=== PATIENT | male | born 1990 | race Hispanic/Latino ===

== ENCOUNTER 2016-11-10 22:45 | Emergency (ER) | payer BC, OTHER ==
[2016-11-10 22:52] VITALS: BMI 22.8
[2016-11-10 23:01] VITALS: BP 114/78; PULSE 71; RESP 18; TEMP 97.6; O2SAT 100
--- NOTE | 2016-11-10 23:03 | ED PDOC ---
Arrival/HPI - General Chief Complaint: Finger,Hand,&Wrist Time Seen by Provider: 11/10/16 22:59 Historian: Patient - History of Present Illness Narrative History of Present Illness (Text): 11/10/16 23:00 26 y/o male, no significant pmh, lt. handed and using the lt. hand 1st digit thumb to grab and throw the bowling ball c/o lt. hand 1st digit thumb pain x 6 months with no fall or trauma. Aching pain, aggravated by the thumb movement, no fever or chills, no chest pain or shortness of breath, no night sweat, no other medical or psychological complaints. Past Medical History - Provider Review Nursing Documentation Reviewed: Yes - Past History Past History: No Previous - Infectious Disease Hx of Infectious Diseases: None - Tetanus Immunization Tetanus Immunization: Up to Date - Past Medical History Past Medical History: No Previous - Cardiac Hx Cardiac Disorders: No - Pulmonary Hx Respiratory Disorders: No - Neurological Hx Neurological Disorder: No - HEENT Hx Sinusitis: Yes Other/Comment: sinus sx - Renal Hx Renal Disorder: No - Endocrine/Metabolic Hx Endocrine Disorders: No - Hematological/Oncological Hx Blood Disorders: No - Integumentary Hx Dermatological Disorder: No - Musculoskeletal/Rheumatological Hx Musculoskeletal Disorders: No Hx Falls: No - Gastrointestinal Hx Gastroesophageal Reflux: Yes Hx Gastrointestinal Ulcer: Yes - Genitourinary/Gynecological Hx Genitourinary Disorders: No - Psychiatric Hx Depression: Yes Hx Substance Use: No - Past Surgical History Past Surgical History: No Previous - Surgical History Hx Orthopedic Surgery: Yes (broken nose 2 yrs) Other/Comment: sinus surgery - Anesthesia Hx Anesthesia: Yes Hx Anesthesia Reactions: No Hx Malignant Hyperthermia: No - Suicidal Assessment Feels Threatened In Home Enviroment: No Family/Social History - Physician Review Nursing Documentation Reviewed: Yes Family/Social History: Unknown Family HX Smoking Status: Never Smoked Hx Alcohol Use: No Hx Substance Use: No Hx Substance Use Treatment: No Allergies/Home Meds Allergies/Adverse Reactions: Allergies No Known Allergies Allergy (Verified 07/26/15 01:25) Review of Systems - Review of Systems Constitutional: absent: Fatigue, Fevers Eyes: absent: Vision Changes ENT: absent: Hearing Changes Respiratory: absent: SOB, Cough Cardiovascular: absent: Chest Pain Gastrointestinal: absent: Abdominal Pain Musculoskeletal: Arthralgias, Myalgias. absent: Back Pain, Neck Pain, Joint Swelling Skin: absent: Rash, Pruritis, Skin Lesions, Laceration Psychiatric: absent: Anxiety, Depression Physical Exam Vital Signs Temp Pulse Resp BP Pulse Ox 11/10/16 23:00 97.6 F 71 18 114/78 100 Appearance: Positive for: Well-Appearing, Non-Toxic, Comfortable Pain Distress: Moderate Mental Status: Positive for: Alert and Oriented X 3 - Systems Exam Head: Present: Atraumatic, Normocephalic Pupils: Present: PERRL Extroacular Muscles: Present: EOMI Conjunctiva: Present: Normal Mouth: Present: Moist Mucous Membranes Neck: Present: Normal Range of Motion Respiratory/Chest: Present: Clear to Auscultation, Good Air Exchange. No: Respiratory Distress, Accessory Muscle Use Cardiovascular: Present: Regular Rate and Rhythm, Normal S1, S2. No: Murmurs Abdomen: Present: Normal Bowel Sounds. No: Tenderness, Distention, Peritoneal Signs Back: Present: Normal Inspection Upper Extremity: Present: Normal Inspection, Other (Lt. hand/wrist: +ttp and hypertrophy noted on the thenar with the pain upon the lt. hand 1st digit 1st MCPJ movement, sensation intact, motor 5/5, no scaphoid tenderness, FROM without limitation, sensation intact, motor 5/5, +radial pulse, capillary refill < 2 seconds, neurovascular intact. ). No: Cyanosis, Edema Lower Extremity: Present: Normal Inspection. No: Edema Neurological: Present: GCS=15, CN II-XII Intact, Speech Normal Skin: Present: Warm, Dry, Normal Color. No: Rashes Psychiatric: Present: Alert, Oriented x 3, Normal Insight, Normal Concentration Medical Decision Making ED Course and Treatment: 11/10/16 23:03 -motrin -lt. hand thumb spical splint -xray -advised to stop the boweling until the pain improved 11/10/16 23:34 -xray show no fracture or dislocation -Discharge home with indomethacin, thumb spica splint, avoid doing the same activities that will trigger the pain, follow up with your own pmd and hand specialist within 2 days, return to the ER for any new or worsening signs or symptoms. 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 Disposition/Present on Arrival - Present on Arrival Any Indicators Present on Arrival: No History of DVT/PE: No History of Uncontrolled Diabetes: No Urinary Catheter: No History of Decub. Ulcer: No History Surgical Site Infection Following: None - Disposition Have Diagnosis and Disposition been Completed?: Yes Diagnosis: Hand pain, left, Tendinitis Disposition: HOME/ ROUTINE Disposition Time: 23:03 Patient Plan: Discharge Condition: GOOD Additional Instructions: -Discharge home with indomethacin, thumb spica splint, avoid doing the same activities that will trigger the pain, follow up with your own pmd and hand specialist within 2 days, return to the ER for any new or worsening signs or symptoms. Prescriptions: Indomethacin [Indocin] 50 mg PO TID PRN #30 cap PRN Reason: Other Referrals: Shanique Bingham DO [Primary Care Provider] - Follow up with primary Forms: [facility] [facility] Connect ([place]), WORK NOTE
--- NOTE | 2016-11-11 09:41 | RAD ---
HISTORY: lt. 1st metacarpal pain x 6 months COMPARISON: No prior FINDINGS: BONES: Normal. No fracture. JOINTS: Normal. No osteoarthritis. SOFT TISSUE: Normal. OTHER FINDINGS: None . IMPRESSION: Normal Bone Xray.
== END 2016-11-11 | disposition home or self-care (01) ==
LOC: ED 22:45
DX: M79.642 Pain in left hand (principal); M77.9 Enthesopathy, unspecified

== ENCOUNTER 2017-01-09 23:13 | Emergency (ER) | payer BC, OTHER ==
[2017-01-09 23:14] VITALS: BMI 22.8
[2017-01-09 23:39] VITALS: BP 113/58; PULSE 71; RESP 18; TEMP 97.7; O2SAT 98
--- NOTE | 2017-01-09 23:50 | ED PDOC ---
Arrival/HPI - General Chief Complaint: Medical Clearance Time Seen by Provider: 01/09/17 23:28 Historian: Patient - History of Present Illness Narrative History of Present Illness (Text): 01/10/17 00:01 A 26 year old male, whose past medical history includes GERD, anxiety, depression, and gastrointestinal ulcer, presents to the emergency department complaining of chronic vomiting for past 6 months. Patient notes having experienced similar symptoms 2 yeras ago, but had no diagnoses. Has not visit PMD for symptoms recently. Patient reports he wakes up experiencing nausea, no appetite, and decreased energy. Patient denies any chills, abdominal pain, hematemesis, hematuria, or any other complaints at this time. Also, patient has not had any cannabis use. No surgical history or EtOH use. Past Medical History - Provider Review Nursing Documentation Reviewed: Yes - Past History Past History: No Previous - Infectious Disease Hx of Infectious Diseases: None - Tetanus Immunization Tetanus Immunization: Up to Date - Past Medical History Past Medical History: No Previous - Cardiac Hx Cardiac Disorders: No - Pulmonary Hx Respiratory Disorders: No - Neurological Hx Neurological Disorder: No - HEENT Other/Comment: sinus sx - Renal Hx Renal Disorder: No - Endocrine/Metabolic Hx Endocrine Disorders: No - Hematological/Oncological Hx Blood Disorders: No - Integumentary Hx Dermatological Disorder: No - Musculoskeletal/Rheumatological Hx Musculoskeletal Disorders: No Hx Falls: No - Gastrointestinal Hx Gastroesophageal Reflux: Yes Hx Gastrointestinal Ulcer: Yes - Genitourinary/Gynecological Hx Genitourinary Disorders: No - Psychiatric Hx Anxiety: Yes Hx Depression: Yes Hx Substance Use: No - Past Surgical History Past Surgical History: No Previous - Surgical History Hx Orthopedic Surgery: Yes (broken nose 2 yrs) Other/Comment: sinus surgery - Anesthesia Hx Anesthesia: Yes Hx Anesthesia Reactions: No Hx Malignant Hyperthermia: No - Suicidal Assessment Feels Threatened In Home Enviroment: No Family/Social History - Physician Review Nursing Documentation Reviewed: Yes Family/Social History: No Known Family HX Smoking Status: Never Smoked Hx Alcohol Use: No Hx Substance Use: No Hx Substance Use Treatment: No Allergies/Home Meds Allergies/Adverse Reactions: Allergies No Known Allergies Allergy (Verified 01/09/17 23:28) Review of Systems - Physician Review All systems were reviewed & negative as marked: Yes - Review of Systems Constitutional: absent: Night Sweats Gastrointestinal: Nausea, Vomiting, Appetite Changes. absent: Abdominal Pain, Hematemesis Genitourinary Male: absent: Hematuria Physical Exam Vital Signs Reviewed: Yes Vital Signs Temp Pulse Resp BP Pulse Ox 01/09/17 23:38 97.7 F 71 18 113/58 L 98 Temperature: Afebrile Blood Pressure: Normal Pulse: Regular Respiratory Rate: Normal Appearance: Positive for: Well-Appearing Pain Distress: None Mental Status: Positive for: Alert and Oriented X 3 - Systems Exam Head: Present: Atraumatic, Normocephalic Pupils: Present: PERRL Extroacular Muscles: Present: EOMI Conjunctiva: Present: Normal Mouth: Present: Moist Mucous Membranes Neck: Present: Normal Range of Motion Respiratory/Chest: Present: Clear to Auscultation, Good Air Exchange. No: Respiratory Distress, Accessory Muscle Use Cardiovascular: Present: Regular Rate and Rhythm, Normal S1, S2. No: Murmurs Abdomen: Present: Normal Bowel Sounds. No: Tenderness, Distention, Peritoneal Signs Back: Present: Normal Inspection Upper Extremity: Present: Normal Inspection. No: Cyanosis, Edema Lower Extremity: Present: Normal Inspection. No: Edema Neurological: Present: GCS=15, CN II-XII Intact, Speech Normal Skin: Present: Warm, Dry, Normal Color. No: Rashes Psychiatric: Present: Alert, Oriented x 3, Normal Insight, Normal Concentration Medical Decision Making ED Course and Treatment: 01/10/17 00:05 Impression: 26 year old male with chronic vomiting. Benign physical exam. Plan: -- Labs -- Zofran -- IV Fluids -- Reassess and disposition Prior Visits: Notes and results from previous visits were reviewed. Patient was last seen in the emergency department on 11/10/2016 for left hand 1st digit thumb pain. Patient was d/c home. Progress Notes: 01/10/17 01:16 all labs wnl except mildly elevated alkaline phosphatase, no RUQ tendernesss doubt gall stones. pt to f/u with pmd /gi. - Lab Interpretations Lab Results: 01/10/17 00:15 01/10/17 00:15 Lab Results 01/10/17 00:15: TSH 3rd Generation 1.35 01/10/17 00:15: WBC 6.5 D, RBC 5.16, Hgb 15.0, Hct 43.7, MCV 84.7, MCH 29.1, MCHC 34.3, RDW 12.1, Plt Count 207, MPV 10.1, Gran % 57.9, Lymph % (Auto) 33.0, Armstrong % (Auto) 6.2 H, Eos % (Auto) 2.6, Baso % (Auto) 0.3, Gran # 3.76, Lymph # 2.1, Armstrong # 0.4, Eos # 0.2, Baso # 0.02 01/10/17 00:15: Sodium 142, Potassium 3.8, Chloride 106, Carbon Dioxide 28, Anion Gap 12, BUN 14, Creatinine 0.8, Est GFR ( Amer) > 60, Est GFR (Non- Af Amer) > 60, Random Glucose 105, Calcium 9.1, Magnesium 2.2, Total Bilirubin 1.2, AST 23, ALT 34, Alkaline Phosphatase 37 L, Total Protein 7.5, Albumin 4.3, Globulin 3.2, Albumin/Globulin Ratio 1.3 I have reviewed the lab results: Yes Interpretation: No sign. chg./baseline - Medication Orders Current Medication Orders: Discontinued Medications Sodium Chloride (Sodium Chloride 0.9%) 1,000 mls @ 999 mls/hr IV .Q1H1M STA Stop: 01/10/17 01:01 Last Admin: 01/10/17 00:26 Dose: 999 mls/hr eMAR Start Stop Document 01/10/17 00:26 [email or web address] (Rec: 01/10/17 00:26 [id number]) Intravenous Solution Start Date 01/10/17 Start Time 00:26 End Date 01/10/17 Ondansetron HCl (Zofran Inj) 4 mg IVP STAT STA Stop: 01/10/17 00:02 Last Admin: 01/10/17 00:26 Dose: 4 mg IVP Administration Document 01/10/17 00:26 [email or web address] (Rec: 01/10/17 00:26 [id number]) Charges for Administration # of IVP Administrations 1 - Scribe Statement The provider has reviewed the documentation as recorded by the Gloria Fair Provider Scribe Attestation: All medical record entries made by the Scribnatasha were at my direction and personally dictated by me. I have reviewed the chart and agree that the record accurately reflects my personal performance of the history, physical exam, medical decision making, and the department course for this patient. I have also personally directed, reviewed, and agree with the discharge instructions and disposition. Disposition/Present on Arrival - Present on Arrival Any Indicators Present on Arrival: No History of DVT/PE: No History of Uncontrolled Diabetes: No Urinary Catheter: No History of Decub. Ulcer: No History Surgical Site Infection Following: None - Disposition Have Diagnosis and Disposition been Completed?: Yes Diagnosis: Gastritis Disposition: HOME/ ROUTINE Disposition Time: 01:17 Patient Plan: Discharge Patient Problems: Current Active Problems Problem Status Onset Gastritis Acute Condition: IMPROVED Discharge Instructions (ExitCare): Gastritis (ED) Additional Instructions: followup with the primary care office and GI at your earliest convenience Prescriptions: Ondansetron [Zofran] 4 mg PO Q8H PRN #12 tab PRN Reason: Nausea/Vomiting Ranitidine HCl [Zantac] 150 mg PO BID #30 tablet Referrals: PCP,NO [Primary Care Provider] - [place] up [place] [facility] [place] Follow up with primary Danika WEATHERS,MD Clarke [Medical Doctor] - Follow up with primary Forms: [facility] (Italian), WORK NOTE
[2017-01-10] MEDS ORDERED: Sodium Chloride 0.9% 1,000 ML IV STA (00:01)
[2017-01-10 00:32] LABS: BASO # 0.02 K/mm3 (0.0-2.0); BASO % 0.3 % (0.0-3.0); EOS # 0.2 (0.0-0.7); EOS % 2.6 % (1.5-5.0); GRAN # 3.76 (1.4-6.5); GRAN % 57.9 % (50.0-68.0); HEMATOCRIT 43.7 % (42.0-52.0); LYMPH # 2.1 (1.2-3.4); MEAN CELL VOLUME 84.7 fl (80.0-105.0); MEAN CORPUSCULAR HEMOGLOBIN 29.1 pg (25.0-35.0); MEAN CORPUSCULAR HGB CONC 34.3 g/dl (31.0-37.0); MEAN PLATELET VOLUME 10.1 fl (7.0-11.0); MONO # 0.4 (0.1-0.6); MONO % 6.2 % (1.0-6.0); RED CELL DISTRIBUTION WIDTH 12.1 % (11.5-14.5); WHITE BLOOD COUNT 6.5 10^3/ul (4.5-11.0)
[2017-01-10 00:41] LABS: CHLORIDE 106 mmol/L (98-107)
[2017-01-10 00:44] LABS: ALB/GLOB RATIO 1.3 (1.1-1.8); ALKALINE PHOSPHATASE 37 U/L (38-126); ALT/SGPT 34 U/L (7-56); AST/SGOT 23 U/L (17-59); BILIRUBIN,TOTAL 1.2 mg/dL (0.2-1.3); BLOOD UREA NITROGEN 14 mg/dL (7-21); CALCIUM 9.1 mg/dL (8.4-10.5); CARBON DIOXIDE 28 mmol/L (21-33); GFR AFRICAN-AMERICAN > 60; GLUCOSE,RANDOM 105 mg/dL (70-110); MAGNESIUM 2.2 mg/dL (1.7-2.2); POTASSIUM 3.8 mmol/L (3.6-5.0); SODIUM 142 mmol/L (132-148); TOTAL PROTEIN 7.5 g/dL (5.8-8.3)
== END 2017-01-10 01:35 | disposition home or self-care (01) ==
LOC: ED 23:13
DX: K29.70 Gastritis, unspecified, without bleeding (principal)
CPT/HCPCS: 80053; 83735; 84443; 85025; 96374; 99282; J2405; J7040

== ENCOUNTER 2017-01-23 05:52 | Emergency (ER) | payer BC, OTHER ==
[2017-01-23 05:59] VITALS: BMI 22.0
[2017-01-23 06:05] VITALS: BP 114/86; PULSE 84; RESP 20; TEMP 97.9; O2SAT 99
--- NOTE | 2017-01-23 06:10 | ED PDOC ---
Arrival/HPI - General Chief Complaint: Lower Extremity Problem/Injury Time Seen by Provider: 01/23/17 06:05 Historian: Patient - History of Present Illness Narrative History of Present Illness (Text): 01/23/17 06:06 Conrado Bright is a 26 year old male who presents to the Emergency department complaining of left foot pain status post injury at work. Patient states a rolling machine rolled over his left foot while at work yesterday and now reports pain to the mid-dorsal aspect of his left. Patient denies any weakness/ numbness/tingling in the extremity, decreased ROM, back pain, neck pain, headache, dizziness, other trauma/injury, or any other complaints. Time/Duration: < week (yesterday) Symptom Onset: Sudden Symptom Course: Unchanged Activities at Onset: Light Context: Work Past Medical History - Provider Review Nursing Documentation Reviewed: Yes - Past History Past History: No Previous - Infectious Disease Hx of Infectious Diseases: None - Tetanus Immunization Tetanus Immunization: Up to Date - Past Medical History Past Medical History: No Previous - Cardiac Hx Cardiac Disorders: No - Pulmonary Hx Respiratory Disorders: No - Neurological Hx Neurological Disorder: No - HEENT Other/Comment: sinus sx - Renal Hx Renal Disorder: No - Endocrine/Metabolic Hx Endocrine Disorders: No - Hematological/Oncological Hx Blood Disorders: No - Integumentary Hx Dermatological Disorder: No - Musculoskeletal/Rheumatological Hx Musculoskeletal Disorders: No Hx Falls: No - Gastrointestinal Hx Gastroesophageal Reflux: Yes Hx Gastrointestinal Ulcer: Yes - Genitourinary/Gynecological Hx Genitourinary Disorders: No - Psychiatric Hx Anxiety: Yes Hx Depression: Yes Hx Substance Use: No - Past Surgical History Past Surgical History: No Previous - Surgical History Hx Orthopedic Surgery: Yes (broken nose 2 yrs) Other/Comment: sinus surgery - Anesthesia Hx Anesthesia: Yes Hx Anesthesia Reactions: No Hx Malignant Hyperthermia: No - Suicidal Assessment Feels Threatened In Home Enviroment: No Family/Social History - Physician Review Nursing Documentation Reviewed: Yes Family/Social History: Unknown Family HX Smoking Status: Never Smoked Hx Alcohol Use: No Hx Substance Use: No Hx Substance Use Treatment: No Allergies/Home Meds Allergies/Adverse Reactions: Allergies No Known Allergies Allergy (Verified 01/23/17 06:11) Review of Systems - Physician Review All systems were reviewed & negative as marked: Yes - Review of Systems Constitutional: Normal. absent: Fevers Eyes: Normal ENT: Normal Respiratory: Normal. absent: SOB, Cough Cardiovascular: Normal. absent: Chest Pain Gastrointestinal: Normal. absent: Abdominal Pain, Diarrhea, Nausea, Vomiting Genitourinary Male: Normal. absent: Dysuria, Frequency, Hematuria, Urinary Output Changes Musculoskeletal: Other (+left foot pain). absent: Back Pain, Neck Pain Skin: Normal. absent: Rash Neurological: Normal. absent: Headache, Dizziness Endocrine: Normal Hemo/Lymphatic: Normal Psychiatric: Normal Physical Exam Vital Signs Reviewed: Yes Vital Signs Temp Pulse Resp BP Pulse Ox 01/23/17 06:05 97.9 F 84 20 114/86 99 01/23/17 05:58 68 18 98 Temperature: Afebrile Blood Pressure: Normal Pulse: Regular Respiratory Rate: Normal Appearance: Positive for: Well-Appearing, Non-Toxic, Comfortable Pain Distress: None Mental Status: Positive for: Alert and Oriented X 3 - Systems Exam Head: Present: Atraumatic, Normocephalic Pupils: Present: PERRL Extroacular Muscles: Present: EOMI Conjunctiva: Present: Normal Mouth: Present: Moist Mucous Membranes Lower Extremity: Present: Tenderness (Tenderness over mid-dorsal surface of left foot). No: Edema Neurological: Present: GCS=15, CN II-XII Intact, Speech Normal Skin: Present: Warm, Dry, Normal Color. No: Rashes Psychiatric: Present: Alert, Oriented x 3, Normal Insight, Normal Concentration Medical Decision Making ED Course and Treatment: 01/23/17 06:06 Impression: 26 year old male complaining of left foot pain s/p injur at work yesterday. Differential Diagnosis included but are not limited to: fracture vs. contusion vs. sprain Plan: -- XR Left Foot -- Motrin -- Reassess and disposition Prior Visits: Notes and results from previous visits were reviewed. On 01/10/17, pt was seen in the Emergency department for chronic vomiting. Pt was d/c home. Progress Notes: - RAD Interpretation Narrative RAD Interpretations (Text): 01/23/17 06:29 Foot X-Ray- no acute process Radiology Orders: 01/23/17 06:06 FOOT LEFT 3 VIEWS ROUTINE [RAD] Stat Furniture Inspector: ED Physician - Medication Orders Current Medication Orders: Discontinued Medications Ibuprofen (Motrin Tab) 600 mg PO STAT STA Stop: 01/23/17 06:08 Last Admin: 01/23/17 06:13 Dose: 600 mg MAR Pain/Vitals Document 01/23/17 06:13 SS (Rec: 01/23/17 06:13 SS [facility] [id number]) Pain Reassessment Is This A Pain ReAssessment? No Sleep Is patient sleeping during reassessment? No Presence of Pain Presence of Pain Yes Pain Scale Used Pain Scale Used Numeric Location Left, Right or Bilateral Left Pain Location Body Site Foot - Scribe Statement The provider has reviewed the documentation as recorded by the Gloria Desai Provider Scribe Attestation: All medical record entries made by the Scribe were at my direction and personally dictated by me. I have reviewed the chart and agree that the record accurately reflects my personal performance of the history, physical exam, medical decision making, and the department course for this patient. I have also personally directed, reviewed, and agree with the discharge instructions and disposition. Disposition/Present on Arrival - Present on Arrival Any Indicators Present on Arrival: No History of DVT/PE: No History of Uncontrolled Diabetes: No Urinary Catheter: No History of Decub. Ulcer: No History Surgical Site Infection Following: None - Disposition Have Diagnosis and Disposition been Completed?: Yes Diagnosis: Foot contusion, Foot sprain Disposition: HOME/ ROUTINE Disposition Time: 06:30 Patient Plan: Discharge Condition: GOOD Discharge Instructions (ExitCare): Foot Contusion (ED), Foot Sprain (ED) Additional Instructions: Rest/avoid weight bearing on the affected area/use crutches/advil as directed/ follow up with your doctor/orthopedist this week Referrals: Sky Avila III, MD [Medical Doctor] - Follow up with primary Forms: [facility] [employer] (Mozambican), WORK NOTE
--- NOTE | 2017-01-23 08:31 | RAD ---
PROCEDURE: Left Foot Radiographs. HISTORY: injury COMPARISON: None. FINDINGS: BONES: Normal. No fracture. JOINTS: Normal. SOFT TISSUES: Normal. OTHER FINDINGS: None. IMPRESSION: Normal left foot radiographs.
== END 2017-01-23 06:56 | disposition home or self-care (01) ==
LOC: ED 05:52
DX: S90.32XA Contusion of left foot, initial encounter (principal); S93.602A Unspecified sprain of left foot, initial encounter; W22.8XXA Striking against or struck by other objects, initial encounter; Y93.89 Activity, other specified; Y92.89 Other specified places as the place of occurrence of the external cause; Y99.0 Civilian activity done for income or pay

== ENCOUNTER 2017-03-17 13:53 | Inpatient (IN) | payer BC, OTHER ==
[2017-03-17 13:53] VITALS: BMI 22.0
--- NOTE | 2017-03-17 14:39 | ED PDOC ---
Arrival/HPI - General Chief Complaint: Psychiatric Evaluation Time Seen by Provider: 03/17/17 14:23 Historian: Patient - History of Present Illness Narrative History of Present Illness (Text): 03/17/17 14:25 Conrado Bright is a 26 year old male who presents to the emergency department complaining of depression for the past 7 months. Patient states that his depression started after his father, a former police dispatcher, killed himself and worsened after his fiance left him. Patient states that he has head depression intermittently for years. Patient saw Dr. Rosales back then and was prescribed medication but has not been back for years. Patient states that today was his first appointment with the [facility] clinic. Upon telling them that he was suicidal with no plan, he was sent to the emergency department. Patient has no other complaints at this time. Patient is not a smoker and does not do any drugs. 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 Time/Duration: Other (7 months) Symptom Onset: Gradual Symptom Course: Unchanged Context: Home Associated Symptoms (Text): 03/17/17 15:05 Patient reports he had his first [facility] appointment today and was directed to the emergency department for suicidal ideation. He has no plan. Past Medical History - Provider Review Nursing Documentation Reviewed: Yes - Past History Past History: No Previous - Infectious Disease Hx of Infectious Diseases: None - Tetanus Immunization Tetanus Immunization: Up to Date - Past Medical History Past Medical History: No Previous - Cardiac Hx Cardiac Disorders: No - Pulmonary Hx Respiratory Disorders: No - Neurological Hx Neurological Disorder: No - HEENT Other/Comment: sinus sx - Renal Hx Renal Disorder: No - Endocrine/Metabolic Hx Endocrine Disorders: No - Hematological/Oncological Hx Blood Disorders: No - Integumentary Hx Dermatological Disorder: No - Musculoskeletal/Rheumatological Hx Musculoskeletal Disorders: No Hx Falls: No - Gastrointestinal Hx Gastroesophageal Reflux: Yes Hx Gastrointestinal Ulcer: Yes - Genitourinary/Gynecological Hx Genitourinary Disorders: No - Psychiatric Hx Anxiety: Yes Hx Depression: Yes Hx Substance Use: No - Past Surgical History Past Surgical History: No Previous - Surgical History Hx Orthopedic Surgery: Yes (broken nose 2 yrs) Other/Comment: sinus surgery - Anesthesia Hx Anesthesia: Yes Hx Anesthesia Reactions: No Hx Malignant Hyperthermia: No - Suicidal Assessment Feels Threatened In Home Enviroment: No Family/Social History - Physician Review Nursing Documentation Reviewed: Yes Family/Social History: No Known Family HX Smoking Status: Never Smoked Hx Alcohol Use: No Hx Substance Use: No Hx Substance Use Treatment: No Allergies/Home Meds Allergies/Adverse Reactions: Allergies No Known Allergies Allergy (Verified 01/23/17 06:11) Home Medications: Home Meds Medication Instructions Recorded Confirmed No Known Home Med 03/17/17 03/17/17 Review of Systems - Physician Review All systems were reviewed & negative as marked: Yes - Review of Systems Constitutional: absent: Fevers, Night Sweats Eyes: absent: Vision Changes ENT: absent: Hearing Changes Respiratory: absent: SOB, Cough Cardiovascular: absent: Chest Pain Gastrointestinal: absent: Abdominal Pain Genitourinary Male: absent: Dysuria, Frequency Musculoskeletal: absent: Arthralgias Skin: absent: Rash, Pruritis Endocrine: absent: Diaphoresis Psychiatric: Depression, Suicidal Ideation Physical Exam Vital Signs Reviewed: Yes Vital Signs Temp Pulse Resp BP Pulse Ox 03/17/17 13:59 98.7 F 92 H 20 125/77 99 Temperature: Afebrile Blood Pressure: Normal Pulse: Regular Respiratory Rate: Normal Appearance: Positive for: Well-Appearing, Comfortable Pain Distress: None Mental Status: Positive for: Alert and Oriented X 3 - Systems Exam Head: Present: Atraumatic, Normocephalic Pupils: Present: PERRL Extroacular Muscles: Present: EOMI Conjunctiva: Present: Normal Mouth: Present: Moist Mucous Membranes Neck: Present: Normal Range of Motion Respiratory/Chest: Present: Clear to Auscultation, Good Air Exchange. No: Respiratory Distress, Accessory Muscle Use Cardiovascular: Present: Regular Rate and Rhythm, Normal S1, S2. No: Murmurs Abdomen: Present: Normal Bowel Sounds. No: Tenderness, Distention, Peritoneal Signs Back: Present: Normal Inspection Upper Extremity: Present: Normal Inspection. No: Cyanosis, Edema Lower Extremity: Present: Normal Inspection. No: Edema Neurological: Present: GCS=15, CN II-XII Intact, Speech Normal, Motor Func Grossly Intact Skin: Present: Warm, Dry, Normal Color. No: Rashes Psychiatric: Present: Depressed Mood, Suicidal Ideation. No: Anxious, Agitated , Homicidal Ideation, Hallucinations, Intoxicated, Lethargic Medical Decision Making ED Course and Treatment: 03/17/17 14:41 Impression: 26 year old male who presents to the emergency department complaining of depression for the past 7 months. Plan: -- EKG -- Chest X-ray -- Urinalysis -- Labs -- Reassess and disposition Prior Visits: Notes and results from previous visits were reviewed. Patient was last seen in emergency department on 01/23/17 for left foot pain status post injury at work. Patient was discharged home. Progress Notes: 03/17/17 15:06 EKG shows normal sinus rhythm rate approximately [address] or T-wave changes - Lab Interpretations Lab Results: 03/17/17 14:24 03/17/17 14:24 Lab Results 03/17/17 15:37: Urine Opiates Screen Negative, Urine Methadone Screen No result , Ur Barbiturates Screen Negative, Ur Phencyclidine Scrn Negative, Ur Amphetamines Screen Negative, U Benzodiazepines Scrn Negative, U Oth Cocaine Metabols Negative, U Cannabinoids Screen Negative 03/17/17 15:37: Urine Color Straw, Urine Appearance Clear, Urine pH 6.5, Ur Specific [place] 1.010, Urine Protein Negative, Urine Glucose (UA) Negative, Urine Ketones Negative, Urine Blood Negative, Urine Nitrate Negative, Urine Bilirubin Negative, Urine Urobilinogen 0.2, Ur Leukocyte Esterase Negative 03/17/17 14:24: Alcohol, Quantitative < 10 03/17/17 14:24: Salicylates < 1 L, Acetaminophen < 10.0 L 03/17/17 14:24: Sodium 141, Potassium 4.1, Chloride 104, Carbon Dioxide 27, Anion Gap 15, BUN 10, Creatinine 0.8, Est GFR ( Amer) > 60, Est GFR (Non- Af Amer) > 60, Random Glucose 96, Calcium 9.5, Total Bilirubin 0.6, AST 26, ALT 29, Alkaline Phosphatase 41, Total Protein 7.9, Albumin 4.4, Globulin 3.5, Albumin/Globulin Ratio 1.3 03/17/17 14:24: WBC 6.0, RBC 5.10, Hgb 14.8, Hct 43.5, MCV 85.3, MCH 29.0, MCHC 34.0, RDW 12.3, Plt Count 208, MPV 10.0, Gran % 55.5, Lymph % (Auto) 36.2 H, [place] % (Auto) 6.0, Eos % (Auto) 1.8, Baso % (Auto) 0.5, Gran # 3.31, Lymph # 2.2 , [place] # 0.4, Eos # 0.1, Baso # 0.03 I have reviewed the lab results: Yes - RAD Interpretation Radiology Orders: 03/17/17 14:28 CHEST PORTABLE [RAD] Stat chest 1 view shows no infiltrate or effusion or cardiomegaly Retail Manager: ED Physician - Scribe Statement The provider has reviewed the documentation as recorded by the Jodyibnatasha Mejia Provider Scribe Attestation: All medical record entries made by the Scribe were at my direction and personally dictated by me. I have reviewed the chart and agree that the record accurately reflects my personal performance of the history, physical exam, medical decision making, and the department course for this patient. I have also personally directed, reviewed, and agree with the discharge instructions and disposition. Disposition/Present on Arrival - Present on Arrival Any Indicators Present on Arrival: No History of DVT/PE: No History of Uncontrolled Diabetes: No Urinary Catheter: No History of Decub. Ulcer: No History Surgical Site Infection Following: None - Disposition Have Diagnosis and Disposition been Completed?: Yes Diagnosis: Depression, Suicidal ideation Disposition: HOME/ ROUTINE Disposition Time: 16:30 Patient Plan: Admission Condition: GOOD Referrals: Shanique Bingham DO [Primary Care Provider] - Follow up with primary Forms: [employer] ([place])
[2017-03-17 14:41] LABS: BASO # 0.03 K/mm3 (0.0-2.0); BASO % 0.5 % (0.0-3.0); EOS # 0.1 (0.0-0.7); EOS % 1.8 % (1.5-5.0); GRAN # 3.31 (1.4-6.5); GRAN % 55.5 % (50.0-68.0); HEMOGLOBIN 14.8 g/dL (14.0-18.0); LYMPH # 2.2 (1.2-3.4); LYMPH % 36.2 % (22.0-35.0); MEAN CELL VOLUME 85.3 fl (80.0-105.0); MONO # 0.4 (0.1-0.6); RBC 5.1 10^6/uL (3.5-6.1); RED CELL DISTRIBUTION WIDTH 12.3 % (11.5-14.5)
[2017-03-17 14:47] LABS: ALB/GLOB RATIO 1.3 (1.1-1.8); ALBUMIN 4.4 g/dL (3.0-4.8); ALT/SGPT 29 U/L (7-56); AST/SGOT 26 U/L (17-59); BLOOD UREA NITROGEN 10 mg/dL (7-21); CALCIUM 9.5 mg/dL (8.4-10.5); GFR AFRICAN-AMERICAN > 60; GFR NON-AFRICAN AMERICAN > 60
[2017-03-17 14:48] LABS: ACETAMINOPHEN < 10.0 ug/ml (10.0-20.0); SALICYLATE < 1 mg/dL (2.0-20.0)
[2017-03-17 16:08] LABS: PH,URINE 6.5 (4.7-8.0); URINE BILIRUBIN NEGATIVE (NEGATIVE); URINE BLOOD NEGATIVE (NEGATIVE); URINE GLUCOSE (UA) NEGATIVE (NEGATIVE); URINE LEUKOCYTE ESTERASE NEGATIVE Leu/uL (NEGATIVE); URINE NITRATE NEGATIVE (NEGATIVE); URINE PROTEIN NEGATIVE mg/dL (<30 mg/dL); URINE UROBILINOGEN 0.2 E.U./dL (<1 E.U./dL)
[2017-03-17 16:15] LABS: BARBITURATES, UR NEGATIVE (NEGATIVE); BENZODIAZEPINES, UR NEGATIVE (NEGATIVE); OPIATES, UR NEGATIVE (NEGATIVE); PHENCYCLIDINE, UR NEGATIVE (NEGATIVE)
--- NOTE | 2017-03-17 16:16 | RAD ---
HISTORY: PES COMPARISON: 01/03/2016 FINDINGS: LUNGS: No active pulmonary disease. PLEURA: No significant pleural effusion identified, no pneumothorax apparent. CARDIOVASCULAR: Normal. OSSEOUS STRUCTURES: No significant abnormalities. VISUALIZED UPPER ABDOMEN: Normal. OTHER FINDINGS: None. IMPRESSION: No active disease.
[2017-03-17 16:22] LABS: URINE APPEARANCE CLEAR (CLEAR); URINE COLOR STRAW (YELLOW)
[2017-03-17 17:27] VITALS: O2SAT 100
[2017-03-17] MEDS ORDERED: Magnesium Hydroxide Susp 30 ml UD PO PRN ×2 (18:35→18:39)
[2017-03-17] MEDS ORDERED: Alum-Mag Hydrox-Simethicone Susp (30 mL) PO PRN ×2 (18:35→18:38)
--- NOTE | 2017-03-17 19:30 | CARD ---
APPROVED REPORT EKG Measurement Heart [id number] <Conclusion> Normal sinus rhythm Normal ECG
--- NOTE | 2017-03-17 19:31 | PCM.BM ---
<Francie Elslworth - Last Filed: 03/17/17 19:28> Treatment Plan Problems - Problems identified on initial assessmt HOPELESS/HELPLESS Date Initiated: 03/17/17 Time Initiated: 20:00 Assessment reference: NA Status: Active Priority: 1 ALTERED SLEEP Date Initiated: 03/17/17 Time Initiated: 20:00 Assessment reference: NA Status: Active Priority: 2 INEFFECTIVE COPING SKILLS Date Initiated: 03/17/17 Time Initiated: 20:00 Assessment reference: NA Status: Active Priority: 3 Treatment assets and liabiliti Patient Assests: cooperative, insightful, ADL independent, physically healthy, good past tx response, cognitively intact Patient Liabilities: financial problems, relationship conflicts, legal issue - Milieu Protocol Maintain good personal hygiene: daily Encourage regular showers, daily Remind patient to perform daily oral care, daily Assist patient to perform ADL's Maintain personal safety: every shift Educate patient to report safety concerns to staff, every shift Monitor environment for contraband/sharps Medication safety: Monitor for expected outcome, potential side effects: every shift, Assess barriers to learning: every shift Discharge/Continuing Care - Education Needs Education Needs: Patient Medication, Patient Diagnosis/Disease Process, Patient Coping Skills, Patient Community resources, Patient Activities of Daily Living, Patient Nutrition, Patient Uses of Medical Equipment, Patient Health Practices/ Safety, Patient Personal Hygiene/Grooming, Patient Aftercare Safety Plan - Discharge Discharge Criteria: Tolerates medication w/o severe side effects, Free of Suicidal thoughts, Free of paranoid thoughts, Normal sleep pattern, Ability to care for self, No longer exhibiting s/s of withdrawal, Reduction of target symptoms Discharge to:: Home <Sara Echeverria - Last Filed: 03/18/17 11:25> - Diagnosis (1) Depression Status: Acute Interventions: Psychoeducation Psychopharmacology/adjustment of medications as needed/ monitoring possible side effects Evaluate pt on daily basis Compliance with medications and follow up appointments Suicide and homicide risk assessment and prevention Relapse prevention Reduction of symptoms Improve functional status Family involvement As outpatient: cognitive behavioral therapy 03/18/17 11:25 <Natacha Agustin - Last Filed: 03/18/17 12:11>
[2017-03-18 07:24] VITALS: RESP 20
[2017-03-18 08:24] LABS: HDL CHOLESTEROL 37 mg/dL (29-60)
[2017-03-18 08:36] LABS: LDL CHOLESTEROL 134 mg/dL (0-129)
[2017-03-18 08:41] LABS: FREE T4 0.97 ng/dL (0.78-2.19)
--- NOTE | 2017-03-18 09:52 | PN ---
DATE: SUBJECTIVE: The patient is in the Behavioral Care Unit. The patient was admitted with diagnosis of depression, psychosis, suicidal tendency, and insomnia. The patient has had recent depression due to family tragedy; the patient's father suddenly. The patient has no significant medical history. The patient has no history of smoking. The patient does not take any drugs. Does not take alcohol. The patient is seen this morning. He seemed to be awake and alert. He does not admit to any needs at this time. The patient states he did sleep fairly well last night. PHYSICAL EXAMINATION: VITAL SIGNS: His pulse is 68, blood pressure is 103/71, his temperature is 98.1, and respirations are 20. HEENT: The patient's head is normocephalic. He has a helms, which characterizes him. NECK: Thyroid is not enlarged. Carotid pulses are present. LUNGS: Trachea central. Breath sounds are vesicular. No underlying adventitious sounds are heard. HEART: Normal sinus rhythm. S1 and S2 present. The patient's rhythm and rate is within normal limits. ABDOMEN: Soft. Liver and spleen not palpable. Nontender. No masses. PROJECT DESIGNER: He is conscious, rational and oriented. His cranial nerves are intact. The patient has no difficulty in walking. He is stable. Medically, he is stable. The patient needs behavioral care management and medical problems are under control. MEDICATIONS: His medication list consist of Ativan the patient is on 2 mg q.6 hours. The patient is on Geodon 20 mg q.6 hours p.r.n. The patient is on Sonata, which is for sleep 5 mg at night time and Tylenol for headache. LABORATORY DATA: His blood work has been done in the hospital. His white count is 6000. He has 36% lymphocytes and 55% granulocytes. Chemistry, the patient's BUN and creatinine are within normal limits. The patient's blood sugar is within normal limits. All other chemical parameters albumin, globulin, liver function tests are within normal limits. ASSESSMENT AND PLAN: The patient appears to be in stable condition. He is in room with another patient and according to the Psychiatry, he does not need a one-to-one at this time. Mayito Bautista MD [facility]
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
[2017-03-18] MEDS: buPROPion 150 mg/24 Hours XL Tab PO SCH (11:59)
[2017-03-19] MEDS: buPROPion 150 mg/24 Hours XL Tab PO SCH (08:50)
--- NOTE | 2017-03-19 12:22 | PCM.PYCHPN ---
Psychiatric Progress Note - Psychiatric Progress Note Patient seen today, length of contact: 25 Patient Chief Complaint: " I am feeling great" Problems Identified/Issues Discussed: Patient is a 26 year old white male, small in stature and slim of build with tattoos visible on forearms. He was admitted after presenting to the [facility] for his first appointment for depression. He was found to be suicidal without a plan so he was [place] [facility] [place]. His father, who was a bark grinder and a killed himself 7 months ago. Patient has been depressed in the past but it has been worse since his father . He lives with his mother, has a fiancee, and a brother who are supports. Hygiene and grooming are good. Patient has a bright affect today, stated on the medication and is tolerating it well. Is active on the unit socializing and attending groups. 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 Discharge is planned for tomorrow with followup at [facility]. Medical Problems: Healthy Diagnostic Results: Laboratory Results - last 24 hr 03/18/17 08:00 RPR Nonreactive No Known Allergies Allergy (Verified 03/19/17 02:11) Laboratory Tests 03/17/17 03/17/17 03/17/17 14:24 14:24 14:24 WBC 6.0 RBC 5.10 Hgb 14.8 Hct 43.5 MCV 85.3 MCH 29.0 MCHC 34.0 RDW 12.3 Plt Count 208 MPV 10.0 Gran % 55.5 Lymph % (Auto) 36.2 H Pender % (Auto) 6.0 Eos % (Auto) 1.8 Baso % (Auto) 0.5 Gran # 3.31 Lymph # 2.2 Pender # 0.4 Eos # 0.1 Baso # 0.03 Sodium 141 Potassium 4.1 Chloride 104 Carbon Dioxide 27 Anion Gap 15 BUN 10 Creatinine 0.8 Est GFR ( Amer) > 60 Est GFR (Non-Af Amer) > 60 Random Glucose 96 Calcium 9.5 Total Bilirubin 0.6 AST 26 ALT 29 Alkaline Phosphatase 41 Total Protein 7.9 Albumin 4.4 Globulin 3.5 Albumin/Globulin Ratio 1.3 Triglycerides Cholesterol LDL Cholesterol Direct HDL Cholesterol Free T4 TSH 3rd Generation Urine Color Urine Appearance Urine pH Ur Specific Dubois Urine Protein Urine Glucose (UA) Urine Ketones Urine Blood Urine Nitrate Urine Bilirubin Urine Urobilinogen Ur Leukocyte Esterase Salicylates < 1 L Urine Opiates Screen Urine Methadone Screen Acetaminophen < 10.0 L Ur Barbiturates Screen Ur Phencyclidine Scrn Ur Amphetamines Screen U Benzodiazepines Scrn U Oth Cocaine Metabols U Cannabinoids Screen Alcohol, Quantitative RPR 03/17/17 03/17/17 03/17/17 14:24 15:37 15:37 WBC RBC Hgb Hct MCV MCH MCHC RDW Plt Count MPV Gran % Lymph % (Auto) Pender % (Auto) Eos % (Auto) Baso % (Auto) Gran # Lymph # Pender # Eos # Baso # Sodium Potassium Chloride Carbon Dioxide Anion Gap BUN Creatinine Est GFR ( Amer) Est GFR (Non-Af Amer) Random Glucose Calcium Total Bilirubin AST ALT Alkaline Phosphatase Total Protein Albumin Globulin Albumin/Globulin Ratio Triglycerides Cholesterol LDL Cholesterol Direct HDL Cholesterol Free T4 TSH 3rd Generation Urine Color Straw Urine Appearance Clear Urine pH 6.5 Ur Specific Dubois 1.010 Urine Protein Negative Urine Glucose (UA) Negative Urine Ketones Negative Urine Blood Negative Urine Nitrate Negative Urine Bilirubin Negative Urine Urobilinogen 0.2 Ur Leukocyte Esterase Negative Salicylates Urine Opiates Screen Negative Urine Methadone Screen No result Acetaminophen Ur Barbiturates Screen Negative Ur Phencyclidine Scrn Negative Ur Amphetamines Screen Negative U Benzodiazepines Scrn Negative U Oth Cocaine Metabols Negative U Cannabinoids Screen Negative Alcohol, Quantitative < 10 RPR 03/18/17 03/18/17 03/18/17 08:00 08:00 08:00 WBC RBC Hgb Hct MCV MCH MCHC RDW Plt Count MPV Gran % Lymph % (Auto) Pender % (Auto) Eos % (Auto) Baso % (Auto) Gran # Lymph # Pender # Eos # Baso # Sodium Potassium Chloride Carbon Dioxide Anion Gap BUN Creatinine Est GFR ( Amer) Est GFR (Non-Af Amer) Random Glucose Calcium Total Bilirubin AST ALT Alkaline Phosphatase Total Protein Albumin Globulin Albumin/Globulin Ratio Triglycerides 106 Cholesterol 195 LDL Cholesterol Direct 134 H HDL Cholesterol 37 Free T4 0.97 TSH 3rd Generation 1.88 Urine Color Urine Appearance Urine pH Ur Specific Dubois Urine Protein Urine Glucose (UA) Urine Ketones Urine Blood Urine Nitrate Urine Bilirubin Urine Urobilinogen Ur Leukocyte Esterase Salicylates Urine Opiates Screen Urine Methadone Screen Acetaminophen Ur Barbiturates Screen Ur Phencyclidine Scrn Ur Amphetamines Screen U Benzodiazepines Scrn U Oth Cocaine Metabols U Cannabinoids Screen Alcohol, Quantitative RPR Nonreactive Temp Pulse Resp BP Pulse Ox 98.0 F 74 20 98/59 L 100 03/19/17 07:29 03/19/17 07:29 03/19/17 07:29 03/19/17 07:29 03/17/17 17:26 Medication Change: No Medical Record Reviewed: Yes Consults ordered or reviewed: No consults, patient was medically cleared in the emergency room Mental Status Examination - Cognitive Function Orientation: Person, Place, Situation, Time - Mood Mood: Neutral - Affect Affect: Constricted - Formal Thought Process Formal Thought Process: No Impairment - Homicidal Ideation Homicidal Ideation: No Goal/Treatment Plan - Goal/Treatment Plan Progress Toward Problem(s) and Goals/Treatment Plan: Treatment plan: Milieu/structure/supportive therapy Medical consult appreciated, see medical team note for more detailed info consultation for discharge plan and social issues Med management Family involvement Follow up on labs Will monitor closely evaluation for d/c planning Pt was educated about risk/benefits and alternatives of medications, coping strategies (safety plan, suicide prevention), relapse prevention, importance of follow up with psychiatrist and therapist, stay away from drugs/alcohol/smoking
[2017-03-20 07:37] VITALS: BP 118/69; PULSE 76; TEMP 97.9
[2017-03-20] MEDS: buPROPion 150 mg/24 Hours XL Tab PO SCH (09:20)
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
== END 2017-03-20 15:42 | disposition home or self-care (01) | DRG 885 ==
LOC: ED 13:53 → ERH 16:27 → PSYC 17:45
PROVIDERS: ADMIT Psychiatry & Neurology Psychiatry; ATTEND Psychiatry & Neurology Psychiatry
DX: F33.2 Major depressive disorder, recurrent severe without psychotic features (principal); F29 Unspecified psychosis not due to a substance or known physiological condition; R45.851 Suicidal ideations; F81.9 Developmental disorder of scholastic skills, unspecified; G47.00 Insomnia, unspecified; K21.9 Gastro-esophageal reflux disease without esophagitis; Z87.11 Personal history of peptic ulcer disease; R40.2412 Glasgow coma scale score 13-15, at arrival to emergency department

== ENCOUNTER 2017-12-09 13:24 | Emergency (ER) | payer BC, OTHER ==
[2017-12-09 13:53] VITALS: BMI 23.6
[2017-12-09 14:46] LABS: URINE BILIRUBIN NEGATIVE (NEGATIVE); URINE BLOOD NEGATIVE (NEGATIVE); URINE GLUCOSE (UA) NEGATIVE (NEGATIVE); URINE LEUKOCYTE ESTERASE NEGATIVE Leu/uL (NEGATIVE); URINE PROTEIN NEGATIVE mg/dL (<30 mg/dL); URINE UROBILINOGEN 0.2 E.U./dL (<1 E.U./dL)
[2017-12-09 14:48] LABS: URINE APPEARANCE CLEAR (CLEAR); URINE COLOR YELLOW (YELLOW)
[2017-12-09] MEDS ORDERED: cefTRIAXone (Rocephin) 250 mg Inj IM STA (14:54)
--- NOTE | 2017-12-09 15:05 | ED PDOC ---
Addendum entered and electronically signed by Bernardo VILLA,Tiffany Sanchez PA-C 12/12/17 16:36: Addendum Addendum: 12/12/17 16:36 Pt called 2nd time, message left, no answer, will send a letter. Addendum entered and electronically signed by Ellyn Antunez PA 12/11/17 16:10: Addendum Addendum: 12/11/17 16:09 called patient and left message to call back regarding + Gonorrhea. pt was treated appropriately in er. pt will need second phone call per protocol. Original Note: Arrival/HPI - General Chief Complaint: Male Genitourinary Time Seen by Provider: 12/09/17 14:14 Historian: Patient - History of Present Illness Narrative History of Present Illness (Text): 12/09/17 15:01 27yo male with pmhx of depression present with complaint of greenish penile discharge x 2days. Notes that his last relationship ended 6months secondary to infidelity. He denies dysuria, urinary frequency, fever, chills, back pain, any other complaint. Past Medical History - Provider Review Nursing Documentation Reviewed: Yes - Past History Past History: No Previous - Infectious Disease Hx of Infectious Diseases: None - Tetanus Immunization Tetanus Immunization: Up to Date - Past Medical History Past Medical History: No Previous - Cardiac Hx Cardiac Disorders: No - Pulmonary Hx Respiratory Disorders: No - Neurological Hx Neurological Disorder: No - HEENT Other/Comment: sinus sx - Renal Hx Renal Disorder: No - Endocrine/Metabolic Hx Endocrine Disorders: No - Hematological/Oncological Hx Blood Disorders: No - Integumentary Hx Dermatological Disorder: No - Musculoskeletal/Rheumatological Hx Musculoskeletal Disorders: No Hx Falls: No - Gastrointestinal Hx Gastroesophageal Reflux: Yes - Genitourinary/Gynecological Hx Genitourinary Disorders: No - Psychiatric Hx Anxiety: Yes Hx Depression: Yes Hx Substance Use: No - Past Surgical History Past Surgical History: No Previous - Surgical History Hx Orthopedic Surgery: Yes (broken nose 2 yrs) Other/Comment: sinus surgery - Anesthesia Hx Anesthesia: Yes Hx Anesthesia Reactions: No Hx Malignant Hyperthermia: No - Suicidal Assessment Feels Threatened In Home Enviroment: No Family/Social History - Physician Review Nursing Documentation Reviewed: Yes Family/Social History: Unknown Family HX Smoking Status: Never Smoked Hx Alcohol Use: No Hx Substance Use: No Hx Substance Use Treatment: No Allergies/Home Meds Allergies/Adverse Reactions: Allergies No Known Allergies Allergy (Verified 03/19/17 02:11) Review of Systems - Physician Review All systems were reviewed & negative as marked: Yes - Review of Systems Constitutional: Normal Eyes: Normal ENT: Normal Respiratory: Normal Cardiovascular: Normal Gastrointestinal: Normal Genitourinary Male: Other (Penile discharge) Musculoskeletal: Normal Skin: Normal Neurological: Normal Endocrine: Normal Hemo/Lymphatic: Normal Psychiatric: Normal Physical Exam Vital Signs Reviewed: Yes Vital Signs Temp Pulse Resp BP Pulse Ox 12/09/17 13:52 98.7 F 78 19 124/73 98 Temperature: Afebrile Blood Pressure: Normal Pulse: Regular Respiratory Rate: Normal Appearance: Positive for: Well-Appearing, Non-Toxic, Comfortable Pain Distress: None Mental Status: Positive for: Alert and Oriented X 3 - Systems Exam Head: Present: Atraumatic, Normocephalic Pupils: Present: PERRL Extroacular Muscles: Present: EOMI Conjunctiva: Present: Normal Mouth: Present: Moist Mucous Membranes Neck: Present: Normal Range of Motion Respiratory/Chest: Present: Clear to Auscultation, Good Air Exchange. No: Respiratory Distress, Accessory Muscle Use Cardiovascular: Present: Regular Rate and Rhythm, Normal S1, S2. No: Murmurs Abdomen: No: Tenderness, Distention, Peritoneal Signs Back: Present: Normal Inspection Upper Extremity: Present: Normal Inspection. No: Cyanosis, Edema Lower Extremity: Present: Normal Inspection. No: Edema Neurological: Present: GCS=15, CN II-XII Intact, Speech Normal Skin: Present: Warm, Dry, Normal Color. No: Rashes Psychiatric: Present: Alert, Oriented x 3, Normal Insight, Normal Concentration Medical Decision Making - Lab Interpretations Lab Results: Lab Results 12/09/17 14:26: Urine Color Yellow, Urine Appearance Clear, Urine pH 6.0, Ur Specific Diamond 1.020, Urine Protein Negative, Urine Glucose (UA) Negative, Urine Ketones Negative, Urine Blood Negative, Urine Nitrate Negative, Urine Bilirubin Negative, Urine Urobilinogen 0.2, Ur Leukocyte Esterase Negative - Medication Orders Current Medication Orders: Discontinued Medications Azithromycin (Zithromax) 1,000 mg PO STAT STA; Protocol Stop: 12/09/17 14:56 Ceftriaxone Sodium (Rocephin) 250 mg IM STAT STA; Protocol Stop: 12/09/17 14:55 Disposition/Present on Arrival - Present on Arrival Any Indicators Present on Arrival: No History of DVT/PE: No History of Uncontrolled Diabetes: No Urinary Catheter: No History of Decub. Ulcer: No History Surgical Site Infection Following: None - Disposition Have Diagnosis and Disposition been Completed?: Yes Diagnosis: Penile discharge Disposition: HOME/ ROUTINE Disposition Time: 15:10 Patient Plan: Discharge Condition: STABLE Discharge Instructions (ExitCare): Screening for Sexually Transmitted Infections Additional Instructions: Avoid sex for 10days and follow up with MR and if positive have your sexual partner treated Return to ED for any new symptoms Referrals: Shanique Bingham DO [Primary Care Provider] - Follow up with primary
[2017-12-09 16:27] VITALS: BP 122/70; PULSE 72; RESP 18; TEMP 98.2; O2SAT 99
== END 2017-12-09 15:20 | disposition home or self-care (01) ==
LOC: ED 13:24
DX: R36.9 Urethral discharge, unspecified (principal)
CPT/HCPCS: 81003; 87491; 87591; 96372; 99284; J0696

== ENCOUNTER 2018-06-01 17:22 | Emergency (ER) | payer BC, OTHER ==
[2018-06-01 17:33] VITALS: BP 120/83; PULSE 118; RESP 18; TEMP 98.3; O2SAT 97; BMI 24.6
[2018-06-01] MEDS ORDERED: Naproxen 550 mg Tab PO STA (18:02)
[2018-06-01] MEDS ORDERED: Absorbable Gelatin Sponge Size 12-7 MM STA (18:03)
--- NOTE | 2018-06-01 18:15 | ED PDOC ---
Arrival/HPI - General Chief Complaint: Abnormal Skin Integrity Time Seen by Provider: 06/01/18 17:25 Historian: Patient - History of Present Illness Narrative History of Present Illness (Text): 06/01/18 18:16 28-year-old male presents to the emergency room after he sustained a laceration to the distal tip of his left thumb prior to arrival when he was using a slicer at. Otherwise he reports no numbness, decrease in range of motion, or any other injury. Has no other complaints, states that he is up-to-date with his tetanus. PMD [place] Past Medical History - Past History Past History: No Previous - Infectious Disease Hx of Infectious Diseases: None - Tetanus Immunization Tetanus Immunization: Up to Date - Past Medical History Past Medical History: No Previous - Cardiac Hx Cardiac Disorders: No - Pulmonary Hx Respiratory Disorders: No - Neurological Hx Neurological Disorder: No - HEENT Other/Comment: sinus sx - Renal Hx Renal Disorder: No - Endocrine/Metabolic Hx Endocrine Disorders: No - Hematological/Oncological Hx Blood Disorders: No - Integumentary Hx Dermatological Disorder: No - Musculoskeletal/Rheumatological Hx Musculoskeletal Disorders: No - Gastrointestinal Hx Gastroesophageal Reflux: Yes - Genitourinary/Gynecological Hx Genitourinary Disorders: No - Psychiatric Hx Anxiety: Yes Hx Depression: Yes Hx Substance Use: No - Past Surgical History Past Surgical History: No Previous - Surgical History Hx Orthopedic Surgery: Yes (broken nose 2 yrs) Other/Comment: sinus surgery - Anesthesia Hx Anesthesia: Yes Hx Anesthesia Reactions: No Hx Malignant Hyperthermia: No - Suicidal Assessment Feels Threatened In Home Enviroment: No Family/Social History Family/Social History: No Known Family HX Smoking Status: Never Smoked Hx Alcohol Use: No Hx Substance Use: No Hx Substance Use Treatment: No Allergies/Home Meds Allergies/Adverse Reactions: Allergies No Known Allergies Allergy (Verified 03/19/17 02:11) Review of Systems - Review of Systems Constitutional: absent: Fatigue, Fevers Musculoskeletal: absent: Arthralgias, Back Pain, Neck Pain Skin: Laceration. absent: Rash, Pruritis, Skin Lesions Physical Exam Vital Signs Temp Pulse Resp BP Pulse Ox 06/01/18 17:26 98.3 F 118 H 18 120/83 97 Temperature: Afebrile Blood Pressure: Normal Pulse: Tachycardic Respiratory Rate: Normal Appearance: Positive for: Well-Appearing, Non-Toxic, Comfortable Pain Distress: Mild Mental Status: Positive for: Alert and Oriented X 3 - Systems Exam Upper Extremity: Present: Normal Inspection, Normal ROM, NORMAL PULSES. No: Edema Lower Extremity: Present: Normal Inspection. No: Edema Neurological: Present: GCS=15, CN II-XII Intact, Speech Normal, Motor Func Grossly Intact, Normal Sensory Function Skin: Present: Warm, Dry, Normal Color, Other (+2 cm skin avulsion to the distal L thumb with mild active bleeding. ). No: Rashes Psychiatric: Present: Alert, Oriented x 3, Normal Insight, Normal Concentration Medical Decision Making ED Course and Treatment: 06/01/18 18:13 Wound cleaned and irrigated with normal saline, Gelfoam and bulky dressing applied. Patient instructed on proper wound care. Medicated with naproxen and with Keflex. Advised to follow up with primary care physician for all provided in 1-2 days without fail. Advised to take medication as prescribed. Return to the emergency room at any time for any new or worsening symptoms. Patient states he fully agrees with and understands discharge instructions. States that he agrees with the plan and disposition. Verbalized and repeated discharge instructions and plan. I have given the patient opportunity to ask any additional questions. - Medication Orders Current Medication Orders: Discontinued Medications Gelatin (Gelfoam Size 12-7) 1 spg MM STAT STA Stop: 06/01/18 18:04 Naproxen (Anaprox Ds) 550 mg PO ONCE STA Stop: 06/01/18 18:03 - PA / APPLICATIONS SUPPORT LEAD / Resident Statement MD/DO has reviewed & agrees with the documentation as recorded. Disposition/Present on Arrival - Present on Arrival Any Indicators Present on Arrival: No History of DVT/PE: No History of Uncontrolled Diabetes: No Urinary Catheter: No History of Decub. Ulcer: No History Surgical Site Infection Following: None - Disposition Have Diagnosis and Disposition been Completed?: Yes Diagnosis: Avulsion of skin of left thumb Disposition: HOME/ ROUTINE Disposition Time: 18:00 Patient Plan: Discharge Patient Problems: Current Active Problems Problem Status Onset Avulsion of skin of left thumb Acute Condition: STABLE Additional Instructions: Thank you for letting us take care of you today. You were treated for skin avulsion of the left thumb. The emergency medical care you received today was directed at your acute symptoms. If you were prescribed any medication, please fill it and take as directed. It may take several days for your symptoms to resolve. Return to the Emergency Department if your symptoms worsen, do not i mprove, or if you have any other problems. Please contact your doctor in 2 days for re-evaluation and follow up / or call one of the physicians/clinics you have been referred to that are listed on the Patient Visit Information form that is included in your discharge packet. Bring any paperwork you were given at discharge with you along with any medications you are taking to your follow up visit. Our treatment cannot replace ongoing medical care by a primary care provider (PCP) outside of the emergency department. Thank you for allowing the [facility] team to be part of your care today. Prescriptions: Cephalexin [Keflex] 500 mg PO Q8 #21 capsule Referrals: Shanique Bingham DO [Primary Care Provider] - Follow up with primary Kevin,Andrew Byers MD [Staff Provider] - Follow up with primary Forms: [employer] ([place]), WORK NOTE
== END 2018-06-01 18:25 | disposition home or self-care (01) ==
LOC: ED 17:22
DX: S61.002A Unspecified open wound of left thumb without damage to nail, initial encounter (principal); W45.8XXA Other foreign body or object entering through skin, initial encounter